=== PATIENT | female | born 1955 | race Caucasian/White ===

== ENCOUNTER 2024-05-21 18:45 | Emergency (ER) | payer MEDICARE, OTHER ==
[~2024-05-21] VITALS: Ht 175.3 cm; Wt 89.4 kg
[2024-05-21 20:25] VITALS: BP 118/67
== END 2024-05-21 20:25 | disposition home or self-care (01) ==
LOC: ED 18:45
DX: S61.211A Laceration without foreign body of left index finger without damage to nail, initial encounter (principal); Z88.0 Allergy status to penicillin; W26.0XXA Contact with knife, initial encounter
CPT/HCPCS: 99282

== ENCOUNTER 2024-07-03 13:23 | Emergency (ER) | payer MEDICARE ==
[~2024-07-03] VITALS: Ht 175.3 cm; Wt 83.9 kg
[2024-07-03 14:59] LABS: BILIRUBIN, URINE NEGATIVE (negative); BLOOD/HGB, URINE NEGATIVE (Negative); KETONE, URINE NEGATIVE (Negative); LEUK ESTERASE, URINE NEGATIVE (negative); NITRITE, URINE POSITIVE (negative); PH, URINE 5.5 (5-7)
[2024-07-03] MEDS ORDERED: CEPHALEXIN MONOHYDRATE 500 MG CAP PO ONE (15:00)
[2024-07-03] MEDS ORDERED: CEPHALEXIN500 M1 PO (15:07)
[2024-07-03 15:09] LABS: BACTERIA, URINE NONE SEEN /hpf (negative); CASTS, URINE NONE SEEN \\lpf; COLLECTION TYPE, URINE CLEAN CATCH; CRYSTALS, URINE NONE SEEN (0-1+); EPITHELIAL CELLS, URINE SQUAMOUS 1+ /lpf (0-1+); RED BLOOD CELLS, URINE 0-1 /hpf (0-5); REFLEX CULTURE, URINE No (No)
[2024-07-03] MEDS ORDERED: METOPROLOL SUCC25 MG PO (15:17)
[2024-07-03 15:22] VITALS: BP 129/87
== END 2024-07-03 15:24 | disposition home or self-care (01) ==
LOC: ED 13:23
PROVIDERS: Emergency Medicine
DX: L03.012 Cellulitis of left finger (principal); R39.15 Urgency of urination; Z88.1 Allergy status to other antibiotic agents
CPT/HCPCS: 81001; 99283; A9270